=== PATIENT | female | born 1990 | race Caucasian/White ===

== ENCOUNTER 2022-07-22 09:54 | Inpatient (IN) | payer OTHER ==
[2022-07-22] MEDS ORDERED: Zofran 4 MG/2 ML VIAL IV PRN (15:53)
[2022-07-22] MEDS ORDERED: TYLENOL EXTRA STRENGTH 500 MG PO PRN (15:53)
[2022-07-22] MEDS ORDERED: PITOCIN 30 UNITS/ LR 500 ML 30 UNITS/500 ML PLAST..BAG IV SCH (16:00)
[2022-07-22 16:02] LABS: Absolute Neutrophil Ct (ANC) 12.59 x10^3/uL (1.4-6.9); BASOPHIL % 0.3 % (0.0-0.4); Basophil (Absolute #) 0.06 x10^3/uL (0-0.4); Eosinophil % 0.9 % (0.00-5.0); Eosinophil (Absolute #) 0.15 x10^3/uL (0-0.5); Hematocrit 37.2 % (35-47); Hemoglobin 12.5 g/dL (12.0-16.0); IMMATURE GRAN # 0.11 x10^3u/L (0.00-0.03); IMMATURE GRAN % 0.6 % (0.00-0.4); Lymphocyte (Absolute #) 3.73 x10^3/uL (1.0-4.6); Lymphocytes % 21.4 % (24.0-44.0); Mean Cell Volume 96.6 fL (78-100); Mean Corpuscular Hemoglobin 32.5 pg (26-32); Mean Corpuscular Hgb Concent. 33.6 g/dL (32-36); Mean Platelet Volume 9.1 fL (7.5-11.0); Monocyte (Absolute #) 0.79 x10^3/uL (0.0-1.3); Monocytes % 4.5 % (0.0-12.0); Neutrophil % 72.3 % (36.0-66.0); Platelet Count 436 x10^3/uL (150-450); Red Blood Count 3.85 x10^6/uL (4.1-5.4); Red Cell Distribution Width 13.4 % (11.5-14.0); White Blood Count 17.4 x10^3/uL (4.0-10.5)
[2022-07-22 16:25] LABS: Amphetamine,Urine NEGATIVE (NEGATIVE); Barbiturate,Urine NEGATIVE (NEGATIVE); Benzodiazepine,Urine NEGATIVE (NEGATIVE); Cocaine,Urine NEGATIVE (NEGATIVE); Methadone,Urine NEGATIVE (NEGATIVE); Opiate,Urine NEGATIVE (NEGATIVE); PCP,Urine NEGATIVE (NEGATIVE); THC,Urine NEGATIVE (NEGATIVE)
[2022-07-22] MEDS: Lactated Ringers 1,000 ML IV SCH ×2 (17:27→17:28)
[2022-07-22] MEDS ORDERED: Ephedrine Sulfate 50 MG/ML IV PRN (17:29)
[2022-07-22] MEDS ORDERED: FENTANYL 2 MCG-BUPIV 0.125%-NS 250 ML Epidur 250 ML EPIDURAL SCH (17:30)
[2022-07-22] MEDS ORDERED: BRETHINE 1 MG/ML SQ PRN (20:00)
[2022-07-22 20:21] LABS: ABO TYPING O; Antibody Screen NEGATIVE (NEGATIVE); RH TYPING POSITIVE
[2022-07-22] MEDS ORDERED: Erythromycin 1 GM ONE (20:39)
[2022-07-22] MEDS ORDERED: Vitamin K 1 MG ONE (20:39)
[2022-07-22] MEDS: TUCKS TP PRN (21:17)
[2022-07-22] MEDS ORDERED: Anucort-HC SUPPOSITORY PR PRN (22:00)
[2022-07-22] MEDS ORDERED: CORTISONE 1% CREAM TP PRN (22:00)
[2022-07-22] MEDS ORDERED: Mylicon 80MG PO PRN (22:00)
[2022-07-22] MEDS ORDERED: Dermoplast Spray TP PRN (22:00)
[2022-07-22] MEDS ORDERED: Dulcolax 10 MG SUPP PR PRN (22:00)
[2022-07-22] MEDS ORDERED: LANSINOH 40 GM TOP PRN (22:00)
[2022-07-22] MEDS: MOTRIN 400 MG PO PRN (23:10)
[2022-07-23 00:56] VITALS: O2SAT 98
[2022-07-23 05:34] LABS: Absolute Neutrophil Ct (ANC) 11.62 x10^3/uL (1.4-6.9); BASOPHIL % 0.3 % (0.0-0.4); Basophil (Absolute #) 0.06 x10^3/uL (0-0.4); Eosinophil % 1.5 % (0.00-5.0); Eosinophil (Absolute #) 0.27 x10^3/uL (0-0.5); Hematocrit 32.5 % (35-47); Hemoglobin 10.6 g/dL (12.0-16.0); IMMATURE GRAN # 0.19 x10^3u/L (0.00-0.03); Lymphocyte (Absolute #) 5.05 x10^3/uL (1.0-4.6); Lymphocytes % 27.8 % (24.0-44.0); Mean Cell Volume 97.6 fL (78-100); Mean Corpuscular Hemoglobin 31.8 pg (26-32); Mean Corpuscular Hgb Concent. 32.6 g/dL (32-36); Mean Platelet Volume 9.1 fL (7.5-11.0); Monocyte (Absolute #) 0.97 x10^3/uL (0.0-1.3); Monocytes % 5.3 % (0.0-12.0); Neutrophil % 64.1 % (36.0-66.0); Platelet Count 346 x10^3/uL (150-450); Red Blood Count 3.33 x10^6/uL (4.1-5.4); Red Cell Distribution Width 13.5 % (11.5-14.0); White Blood Count 18.2 x10^3/uL (4.0-10.5)
[2022-07-23] MEDS: MOTRIN 400 MG PO PRN ×2 (06:51→13:29)
[2022-07-23 07:08] LABS: Slide Review 1 YES
--- NOTE | 2022-07-23 07:44 | PCM.NOTE ---
Date and Time: 07/23/22 0743 Subjective Assessment: ppd 1 sp pt resting in bed and doing well ambulating and tolerating diet vss afebrile abd;soft uterus; firm lochia; mild a/p sp ppd 1 dc home tomorrow should fu office 3 wks OBJECTIVE DATA Vital Signs: Vital Signs - 24 hr Temp Pulse Resp BP BP BP Pulse Ox 07/23/22 04:00 97.9 F 69 18 102/50 98 07/23/22 00:00 98.6 F 75 17 109/53 98 07/22/22 23:00 98.4 F 91 H 18 111/57 99 07/22/22 22:30 98.4 F 76 18 110/54 99 07/22/22 22:00 98.4 F 74 18 111/50 99 07/22/22 21:45 98.5 F 75 18 105/58 99 07/22/22 21:30 98.5 F 85 18 109/59 99 07/22/22 21:15 98.5 F 78 18 108/54 99 07/22/22 21:00 98.5 F 83 18 99/53 99 07/22/22 20:45 98.5 F 95 H 18 113/58 99 07/22/22 20:30 97.2 F 88 18 104/56 97 07/22/22 20:15 97.2 F 92 H 18 104/56 97 07/22/22 20:00 97.2 F 100 H 18 107/52 107/52 98 07/22/22 19:45 97.2 F 91 H 20 108/58 98 07/22/22 19:30 97.2 F 20 101/54 98 07/22/22 19:15 97.2 F 87 20 91/53 98 07/22/22 19:00 98.1 F 106 H 18 101/54 07/22/22 18:45 98.1 F 85 18 124/60 07/22/22 18:30 98.1 F 85 18 124/60 07/22/22 18:15 98.1 F 106 H 18 129/75 07/22/22 18:00 98.1 F 97 H 18 129/64 07/22/22 17:00 98.1 F 80 18 105/53 07/22/22 16:06 98.1 F 94 H 18 103/50 07/22/22 16:00 98.1 F 94 H 18 07/22/22 15:00 98.1 F 94 H 18 103/50 07/22/22 14:28 98.1 F 83 18 123/76 07/22/22 13:00 82 16 125/60 07/22/22 11:00 98.2 F 81 16 121/72 07/22/22 10:15 81 16 121/72 07/22/22 10:00 98.2 F 81 16 121/72 Pain Assessment - Last Documented Pain Intensity [Lower] 2 Pain Intensity 3 Pain Scale Used 0-10 Pain Scale Intake and Output: Intake & Output 07/20/22 07/21/22 07/22/22 07/23/22 11:59 11:59 11:59 11:59 Intake Total 2080 Output Total 150 Balance 1930 Weight 105.233 kg 105.233 kg Lab Results: Lab Results-Last 24 Hours 07/22/22 07/22/22 07/22/22 Range/Units 15:40 15:53 15:56 WBC 17.4 H (4.0-10.5) x10^3/uL RBC 3.85 L (4.1-5.4) x10^6/uL Hgb 12.5 (12.0-16.0) g/dL Hct 37.2 (35-47) % MCV 96.6 (78-100) fL MCH 32.5 H (26-32) pg MCHC 33.6 (32-36) g/dL RDW 13.4 (11.5-14.0) % Plt Count 436 (150-450) x10^3/uL MPV 9.1 (7.5-11.0) fL Gran % 72.3 H (36.0-66.0) % Immature Gran % (Auto) 0.6 H (0.00-0.4) % Nucleat RBC Rel Count 0.0 (0.00-0.1) % Eos # (Auto) 0.15 (0-0.5) x10^3/uL Immature Gran # (Auto) 0.11 H (0.00-0.03) x10^3u/L Absolute Lymphs (auto) 3.73 (1.0-4.6) x10^3/uL Absolute Monos (auto) 0.79 (0.0-1.3) x10^3/uL Absolute Nucleated RBC 0.00 (0.00-0.01) x10^3u/L Lymphocytes % 21.4 L (24.0-44.0) % Monocytes % 4.5 (0.0-12.0) % Eosinophils % 0.9 (0.00-5.0) % Basophils % 0.3 (0.0-0.4) % Absolute Granulocytes 12.59 H (1.4-6.9) x10^3/uL Basophils # 0.06 (0-0.4) x10^3/uL Urine Opiates Level NEGATIVE (NEGATIVE) Ur Methadone NEGATIVE (NEGATIVE) Urine Barbiturates NEGATIVE (NEGATIVE) Ur Phencyclidine (PCP) NEGATIVE (NEGATIVE) Urine Amphetamine NEGATIVE (NEGATIVE) U Benzodiazepine Level NEGATIVE (NEGATIVE) Urine Cocaine NEGATIVE (NEGATIVE) Urine Marijuana (THC) NEGATIVE (NEGATIVE) Slides for Path Review ABO Group O Rh Factor POSITIVE Antibody Screen NEGATIVE (NEGATIVE) 07/23/22 Range/Units 05:19 WBC 18.2 H (4.0-10.5) x10^3/uL RBC 3.33 L (4.1-5.4) x10^6/uL Hgb 10.6 L (12.0-16.0) g/dL Hct 32.5 L (35-47) % MCV 97.6 (78-100) fL MCH 31.8 (26-32) pg MCHC 32.6 (32-36) g/dL RDW 13.5 (11.5-14.0) % Plt Count 346 (150-450) x10^3/uL MPV 9.1 (7.5-11.0) fL Gran % 64.1 (36.0-66.0) % Immature Gran % (Auto) 1.0 H (0.00-0.4) % Nucleat RBC Rel Count 0.0 (0.00-0.1) % Eos # (Auto) 0.27 (0-0.5) x10^3/uL Immature Gran # (Auto) 0.19 H (0.00-0.03) x10^3u/L Absolute Lymphs (auto) 5.05 H (1.0-4.6) x10^3/uL Absolute Monos (auto) 0.97 (0.0-1.3) x10^3/uL Absolute Nucleated RBC 0.00 (0.00-0.01) x10^3u/L Lymphocytes % 27.8 (24.0-44.0) % Monocytes % 5.3 (0.0-12.0) % Eosinophils % 1.5 (0.00-5.0) % Basophils % 0.3 (0.0-0.4) % Absolute Granulocytes 11.62 H (1.4-6.9) x10^3/uL Basophils # 0.06 (0-0.4) x10^3/uL Urine Opiates Level (NEGATIVE) Ur Methadone (NEGATIVE) Urine Barbiturates (NEGATIVE) Ur Phencyclidine (PCP) (NEGATIVE) Urine Amphetamine (NEGATIVE) U Benzodiazepine Level (NEGATIVE) Urine Cocaine (NEGATIVE) Urine Marijuana (THC) (NEGATIVE) Slides for Path Review YES ABO Group Rh Factor Antibody Screen (NEGATIVE) Assessment/Plan (1) Vaginal delivery Current Visit: Yes Status: Acute Code(s): O80 - ENCOUNTER FOR FULL-TERM UNCOMPLICATED DELIVERY
--- NOTE | 2022-07-23 07:47 | PCM.DS ---
Discharge Summary Date of Admission: 07/22/22 17:44 Admitting Physician: JADA PICKENS DO Primary Care Provider: NO FAMILY DOCTOR Allergies Allergies No Known Drug Allergies Allergy (Verified 07/22/22 14:24) Hospital Summary - Hospital Course Hospital Course: pt was admitted on july 22 at 37 4/7 wks gestation who went into labor and was admitted when she was 6-7 cm dilated and subsequently delivered live baby girl without complication via . on ppd 1 did very well able to ambulate and tolerate diet and at this time stable for discharge on july 24. all questions answered to her satisfaction and was advised to fu in office in 3 wks for care. - Vitals & Intake/Output Vital Signs: Vital Signs Temperature 97.9 F 07/23/22 04:00 Pulse Rate 69 07/23/22 04:00 Respiratory Rate 18 07/23/22 04:00 Blood Pressure 102/50 07/23/22 04:00 O2 Sat by Pulse Oximetry 98 07/23/22 04:00 Intake & Output: Intake & Output 07/20/22 07/21/22 07/22/22 07/23/22 11:59 11:59 11:59 11:59 Intake Total 2080 Output Total 150 Balance 1930 Weight 105.233 kg 105.233 kg - Lab Result Diagrams: 07/23/22 05:19 Lab Results-Last 24 Hrs: Lab Results-Last 24 Hours 07/22/22 07/22/22 07/22/22 Range/Units 15:40 15:53 15:56 WBC 17.4 H (4.0-10.5) x10^3/uL RBC 3.85 L (4.1-5.4) x10^6/uL Hgb 12.5 (12.0-16.0) g/dL Hct 37.2 (35-47) % MCV 96.6 (78-100) fL MCH 32.5 H (26-32) pg MCHC 33.6 (32-36) g/dL RDW 13.4 (11.5-14.0) % Plt Count 436 (150-450) x10^3/uL MPV 9.1 (7.5-11.0) fL Gran % 72.3 H (36.0-66.0) % Immature Gran % (Auto) 0.6 H (0.00-0.4) % Nucleat RBC Rel Count 0.0 (0.00-0.1) % Eos # (Auto) 0.15 (0-0.5) x10^3/uL Immature Gran # (Auto) 0.11 H (0.00-0.03) x10^3u/L Absolute Lymphs (auto) 3.73 (1.0-4.6) x10^3/uL Absolute Monos (auto) 0.79 (0.0-1.3) x10^3/uL Absolute Nucleated RBC 0.00 (0.00-0.01) x10^3u/L Lymphocytes % 21.4 L (24.0-44.0) % Monocytes % 4.5 (0.0-12.0) % Eosinophils % 0.9 (0.00-5.0) % Basophils % 0.3 (0.0-0.4) % Absolute Granulocytes 12.59 H (1.4-6.9) x10^3/uL Basophils # 0.06 (0-0.4) x10^3/uL Urine Opiates Level NEGATIVE (NEGATIVE) Ur Methadone NEGATIVE (NEGATIVE) Urine Barbiturates NEGATIVE (NEGATIVE) Ur Phencyclidine (PCP) NEGATIVE (NEGATIVE) Urine Amphetamine NEGATIVE (NEGATIVE) U Benzodiazepine Level NEGATIVE (NEGATIVE) Urine Cocaine NEGATIVE (NEGATIVE) Urine Marijuana (THC) NEGATIVE (NEGATIVE) Slides for Path Review ABO Group O Rh Factor POSITIVE Antibody Screen NEGATIVE (NEGATIVE) 07/23/22 Range/Units 05:19 WBC 18.2 H (4.0-10.5) x10^3/uL RBC 3.33 L (4.1-5.4) x10^6/uL Hgb 10.6 L (12.0-16.0) g/dL Hct 32.5 L (35-47) % MCV 97.6 (78-100) fL MCH 31.8 (26-32) pg MCHC 32.6 (32-36) g/dL RDW 13.5 (11.5-14.0) % Plt Count 346 (150-450) x10^3/uL MPV 9.1 (7.5-11.0) fL Gran % 64.1 (36.0-66.0) % Immature Gran % (Auto) 1.0 H (0.00-0.4) % Nucleat RBC Rel Count 0.0 (0.00-0.1) % Eos # (Auto) 0.27 (0-0.5) x10^3/uL Immature Gran # (Auto) 0.19 H (0.00-0.03) x10^3u/L Absolute Lymphs (auto) 5.05 H (1.0-4.6) x10^3/uL Absolute Monos (auto) 0.97 (0.0-1.3) x10^3/uL Absolute Nucleated RBC 0.00 (0.00-0.01) x10^3u/L Lymphocytes % 27.8 (24.0-44.0) % Monocytes % 5.3 (0.0-12.0) % Eosinophils % 1.5 (0.00-5.0) % Basophils % 0.3 (0.0-0.4) % Absolute Granulocytes 11.62 H (1.4-6.9) x10^3/uL Basophils # 0.06 (0-0.4) x10^3/uL Urine Opiates Level (NEGATIVE) Ur Methadone (NEGATIVE) Urine Barbiturates (NEGATIVE) Ur Phencyclidine (PCP) (NEGATIVE) Urine Amphetamine (NEGATIVE) U Benzodiazepine Level (NEGATIVE) Urine Cocaine (NEGATIVE) Urine Marijuana (THC) (NEGATIVE) Slides for Path Review YES ABO Group Rh Factor Antibody Screen (NEGATIVE) - Procedures and Test Procedures and Tests throughout Hospitalization: Therapy Orders & Screens 07/22/22 14:56 Smoking Cessation Education ONCE Comment: Diagnosis: IUP Smoking Status: Current every day smoker Have you smoked in the past 12 months: Yes Final Diagnosis/Problem List - Final Discharge Diagnosis/Problem (1) Vaginal delivery Current Visit: Yes Status: Acute Code(s): O80 - ENCOUNTER FOR FULL-TERM UNCOMPLICATED DELIVERY - Discharge Disposition: Home, Self-Care Condition: Stable Prescriptions: No Action Vit No.179/Iron/Folic [ Tablet] 1 tab DAILY Follow up with: DOCTOR,NO FAMILY [Primary Care Provider] - JADA PICKENS DO [ACTIVE STAFF] -
[2022-07-23] MEDS: FERREX 150 PO SCH (09:20)
[2022-07-23] MEDS: Docusate Sodium 100 MG PO SCH ×2 (09:20→21:05)
[2022-07-23] MEDS ORDERED: Adacel Vial IM ONE (10:00)
[2022-07-23] MEDS: TUCKS TP PRN (18:22)
[2022-07-24] MEDS: MOTRIN 400 MG PO PRN ×2 (07:38→13:49)
[2022-07-24] MEDS: FERREX 150 PO SCH (09:52)
[2022-07-24] MEDS: Docusate Sodium 100 MG PO SCH (09:52)
[2022-07-24 10:08] LABS: HBsAg Screen Negative (Negative)
[2022-07-24 15:54] VITALS: BP 111/55; PULSE 78
== END 2022-07-24 15:00 | disposition home or self-care (01) | DRG 807 ==
LOC: OB.NST 09:54 → OB 11:00 → OBSVTOIN 17:44
PROVIDERS: ADMIT Obstetrics & Gynecology; ATTEND Obstetrics & Gynecology
PROC: 10E0XZZ Delivery of Products of Conception, External Approach (ICD-10-PCS; principal; 2022-07-22)
PROC: 0HQ9XZZ Repair Perineum Skin, External Approach (ICD-10-PCS; 2022-07-22)
DX: O70.0 First degree perineal laceration during delivery (principal); Z37.0 Single live birth; Z3A.37 37 weeks gestation of pregnancy; Z20.828 Contact with and (suspected) exposure to other viral communicable diseases
CPT/HCPCS: 36415; 59025; 59409; 59426; 80307; 81002; 85025; 86850; 86900; 86901; 87086; 87340; 90471; 90715; 99213; G0378; G0379; J2590; A9270-GY